=== PATIENT | female | born 1965 | race Caucasian/White ===

== ENCOUNTER → 2020-05-12 12:13 | Outpatient (CLI) | payer OTHER, SELFPAY ==
--- NOTE | ~2020-05-12 | MM_ITS ---
EXAMINATION: MM screening marcia BI w safai HISTORY: Screening mammogram, family history of breast cancer in her mother. TECHNIQUE: Craniocaudal and mediolateral oblique 3-D tomosynthesis images were obtained and synthetic 2-D images were generated. CAD analysis was submitted and interpreted. COMPARISON: 11/20/2018, 11/09/2018, 11/07/2017 BREAST PARENCHYMAL COMPOSITION: There are scattered areas of fibroglandular density. FINDINGS: There is no evidence of suspicious mass, calcification, or architectural distortion to sugg est malignancy in either breast. There has been no suspicious interval change. IMPRESSION: 1. No mammographic evidence of malignancy. 2. Recommend routine screening mammography in one year. BI-RADS Category 1: Negative Reviewed, dictated and finalized at location A.
== END ==
PROVIDERS: Visit Provider Obstetrics & Gynecology Gynecology
DX: Z12.31 Encounter for screening mammogram for malignant neoplasm of breast (principal)
CPT/HCPCS: 77063; 77067

== ENCOUNTER → 2021-05-27 13:19 | Outpatient (CLI) | payer OTHER, SELFPAY ==
--- NOTE | ~2021-05-27 | MM_ITS ---
EXAMINATION: MM screening marcia BI w safia HISTORY: Screening mammogram TECHNIQUE: Craniocaudal and mediolateral oblique 3-D tomosynthesis images were obtained and synthetic 2-D images were generated. CAD analysis was submitted and interpreted. COMPARISON: 05/12/2020 bilateral screening mammogram 11/20/2018 diagnostic right mammogram 11/09/2018, 11/03/2017 bilateral screening mammogram examinations BREAST PARENCHYMAL COMPOSITION: There are scattered areas of fibroglandular density. FINDINGS: There is no evidence of suspicious mass, calcification, or architectural distortion to sugg est malignancy in either breast. There has been no suspicious interval change. IMPRESSION: 1. No mammographic evidence of malignancy. 2. Recommend routine screening mammography in one year. BI-RADS Category 1: Negative Reviewed, dictated and finalized at location A.
== END ==
PROVIDERS: Visit Provider Obstetrics & Gynecology Gynecology
DX: Z12.31 Encounter for screening mammogram for malignant neoplasm of breast (principal)
CPT/HCPCS: 77063; 77067

== ENCOUNTER → 2022-04-16 14:24 | Outpatient (CLI) | payer OTHER, SELFPAY ==
--- NOTE | ~2022-04-16 | XR_ITS ---
Right wrist Technique: PA, oblique, lateral, and ulnar deviation views were obtained. Clinical History: Lateral pain Findings: No acute fracture or dislocation is seen. Osseous alignment is anatomic. Joint spaces are p reserved. Soft tissues are unremarkable. Impression: Unremarkable right wrist radiographs. Reviewed, dictated and finalized at location . [employer] CON[employer]GE Impression: Unremarkable right wrist radiographs.
== END ==
PROVIDERS: PCP Chiropractor; Visit Provider Chiropractor
DX: M25.531 Pain in right wrist (principal)
CPT/HCPCS: 73110

== ENCOUNTER → 2022-06-05 08:17 | Outpatient (CLI) | payer OTHER, SELFPAY ==
--- NOTE | ~2022-06-05 | XR_ITS ---
EXAM: XR forearm RT 2V DATE: 06/05/2022 09:49 HISTORY: Pain in right forearm . COMPARISON: X-ray right wrist 04/16/2022. FINDINGS: Normal mineralization. No fracture or dislocation. No lytic or blastic lesion. Joint space s and physes are maintained. No erosion or periosteal change. Soft tissues within normal limits. IMPRESSION: Normal right forearm radiograph findings. Reviewed, dictated and finalized at location K.
== END ==
PROVIDERS: PCP Chiropractor; Visit Provider Chiropractor
DX: M79.631 Pain in right forearm (principal)
CPT/HCPCS: 73090

== ENCOUNTER → 2022-06-19 07:45 | Outpatient (CLI) | payer OTHER, SELFPAY ==
--- NOTE | ~2022-06-19 | MR_ITS ---
EXAMINATION: MR forearm RT wo con DATE: 06/19/2022 08:44 INDICATION: Right forearm pain. TECHNIQUE: Magnetic resonance imaging (MRI) of the right forearm was performed without intravenous co ntrast. COMPARISON: Right forearm radiographs 06/05/2022 FINDINGS: Bone alignment is normal. No fracture. There is moderate osteoarthritis of first carpometac arpal joint and mild osteoarthritis of triscaphe joint and the elbow joint. No elbow joint effusion. The forearm musculature is normal. There is a skin marker at the dorsal aspect of the forearm. There is no abnormality in the area of the skin marker. IMPRESSION: 1. No abnormality in the patient's area of concern. 2. Polyarticular osteoarthritis. Reviewed, dictated and finalized at location A.
== END ==
PROVIDERS: PCP Chiropractor; Visit Provider Chiropractor
DX: M19.031 Primary osteoarthritis, right wrist (principal)
CPT/HCPCS: 73218

== ENCOUNTER → 2022-08-04 16:49 | Outpatient (CLI) | payer OTHER, SELFPAY ==
--- NOTE | ~2022-08-04 | MM_ITS ---
EXAMINATION: MM screening marcia BI w safia HISTORY: Screening mammogram TECHNIQUE: Craniocaudal and mediolateral oblique 3-D tomosynthesis images were obtained and synthetic 2-D images were generated. CAD analysis was submitted and interpreted. COMPARISON: 05/27/2021, 05/12/2020 bilateral screening mammogram examinations BREAST PARENCHYMAL COMPOSITION: There are scattered areas of fibroglandular density. FINDINGS: There is no evidence of suspicious mass, calcification, or architectural distortion to sugg est malignancy in either breast. There has been no suspicious interval change. IMPRESSION: 1. No mammographic evidence of malignancy. 2. Recommend routine screening mammography in one year. BI-RADS Category 1: Negative Reviewed, dictated and finalized at location A.
== END ==
PROVIDERS: PCP Family Medicine; Visit Provider Obstetrics & Gynecology Gynecology
DX: Z12.31 Encounter for screening mammogram for malignant neoplasm of breast (principal)
CPT/HCPCS: 77063; 77067

== ENCOUNTER → 2022-08-30 12:02 | Outpatient (CLI) | payer OTHER, SELFPAY ==
--- NOTE | ~2022-08-30 | DEXA_ITS ---
Bone Density Report Name: MEGAN CHENEY Age: 56 Sex: Female Ethnicity: White Date of : 1965 Indication: postmenopausal; screening for osteoporosis; Referring Provider: SHANKAR CHAVIRA Study: Bone densitometry was performed. Exam Date: August 30, 2022 Accession number: [id number] Bone Density: Region BMD T-score Z-score Classification AP Spine (L1-L4) 1.032 -0.1 0.9 Normal Femoral Neck (Left) 0.690 -1.4 -0.4 Osteopenia Total Hip (Left) 0.806 -1.1 -0.4 Osteopenia Femoral Neck (Right) 0.645 -1.8 -0.8 Osteopenia Total Hip (Right) 0.766 -1.4 -0.8 Osteopenia Total Hip Mean 0.786 -1.3 -0.6 Osteopenia World Health Organization criteria for BMD impression classify patients as: Normal (T-score at or above -1.0), Osteopenia (T-score between -1.0 and -2.5), or Osteoporosis (T-score at or below -2.5). 10-year Fracture Risk(1): Major Osteoporotic Fracture 7.4% Hip Fracture 0.8% Reported Risk Factors: [place] (), Neck BMD=0.645, BMI=24.9 (1) FRAX(R) Version 3.08. Fracture probability calculated for an untreated patient. Fracture probability may be lower if the patient has received treatment. Clinical Information Provided by Patient: Has used the following medications: Vitamin D Patient maximum height was 62 Menopause Age: 54 Drinks caffeinated beverages Onset of menses at age 15 Number of children 3 Impression: The patient has low bone mass, based on the Right Femoral Neck T-score. The patient has an estimated ten-year risk of hip fracture of 0.8% and an estimated ten-year risk of major fracture of 7.4%, based on the WHO FRAX algorithm. Discussion: BONE DENSITY IS LOW AT ONE OR MORE SKELETAL SITES. This patient's lowest T-score is low at one or more skeletal sites. It meets the World Health Organization's (WHO) criteria for ?low bone mass? (T-score between -1.0 and -2.5). The patient's 10-year risk of fracture as calculated by FRAX is less than the threshold where pharmacological therapy is recommended by the National Osteoporosis Foundation (NOF). However, all treatment decisions require clinical judgment and consideration of individual patient factors, including patient preferences, comorbidities, previous drug use, risk factors not captured in the FRAX model (e.g., frailty, falls, vitamin D deficiency, increased bone turnover, interval significant decline in bone density) and possible under or overestimation of fracture risk by FRAX. The patient should follow a healthful lifestyle (good nutrition with adequate calcium and vitamin D, and appropriate weight-bearing exercise). Follow-Up: Consider repeating this study in 2 to 3 years to reassess this patient's status, or sooner if there is some new clinical indication. Reported by: KIRAN on 08/30/2022 12:18:00 PM.
== END ==
PROVIDERS: PCP Obstetrics & Gynecology Gynecology; Visit Provider Obstetrics & Gynecology Gynecology
DX: Z13.820 Encounter for screening for osteoporosis (principal); Z78.0 Asymptomatic menopausal state; M85.852 Other specified disorders of bone density and structure, left thigh; M85.851 Other specified disorders of bone density and structure, right thigh
CPT/HCPCS: 77080

== ENCOUNTER → 2022-09-14 16:45 | Outpatient (CLI) | payer OTHER, SELFPAY ==
--- NOTE | ~2022-09-14 | XR_ITS ---
Cervical Spine: AP, lateral, oblique, open-mouth views Clinical History: Pain Findings: The normal lordotic curve is maintained. No fracture seen. Minimal grade 1 anterolisthesis of C4 over C5 noted. There is moderate degenerative disc narrowing at C3-C4 and C5-C6. Pre-vertebral soft tissues are unremarkable. Impression: Minimal grade 1 anterolisthesis of C4 over C5. Degenerative disc narrowing at C3-C4 and C5-C6, as detailed above. Reviewed, dictated and finalized at location . Impression: Minimal grade 1 anterolisthesis of C4 over C5. Degenerative disc narrowing at C3-C4 and C5-C6, as detailed above.
== END ==
PROVIDERS: PCP Chiropractor; Visit Provider Chiropractor
DX: M54.2 Cervicalgia (principal)
CPT/HCPCS: 72050

== ENCOUNTER → 2022-10-30 09:51 | Outpatient (CLI) | payer OTHER, SELFPAY ==
--- NOTE | ~2022-10-30 | MR_ITS ---
MRI of the cervical spine Clinical History: Right-sided neck pain Technique: Axial T2-weighted and gradient images, and sagittal T1-weighted, T2-weighted, and STIR mariano ges were acquired. Findings: There is minimal grade 1 anterolisthesis of C4 over C5. No fracture seen. No suspicious bon e marrow signal abnormality seen. At C2-C3, there is no disc bulge or herniation. No spinal canal stenosis, cord compression, or neural foraminal narrowing. At C3-C4, there is moderate degenerative disc narrowing. There is minimal disc bulge. No spinal canal stenosis, cord compression. There is mild bilateral neural foraminal narrowing. At C4-C5, there is mild disc osteophyte complex, especially the right paracentral to right foraminal region, with right facet arthropathy. There is right neural foraminal narrowing. Left neural foramen preserved. No central canal stenosis or cord compression. At C5-C6, there is moderate to advanced degenerative disc narrowing with minimal disc osteophyte comp yaquelin. No dipti spinal canal stenosis or cord compression. There is bilateral neural foraminal narrowin g. At C6-C7, there is moderate degenerative disc narrowing with minimal disc osteophyte complex. No cent ral canal stenosis or cord compression. Probable mild left neural foraminal narrowing. Right neural f oramen is preserved. No abnormal signal seen in the spinal cord. Paravertebral soft tissues are unremarkable. Impression: Mild overall degenerative spondylosis, with multilevel neural foraminal narrowing, as detailed above. Neural foraminal narrowing is probably worst at C3-C4. Reviewed, dictated and finalized at [facility]. Impression: Mild overall degenerative spondylosis, with multilevel neural foraminal narrowi ng, as detailed above. Neural foraminal narrowing is probably worst at C3-C4.
== END ==
PROVIDERS: PCP Chiropractor; Visit Provider Chiropractor
DX: M43.02 Spondylolysis, cervical region (principal); M48.02 Spinal stenosis, cervical region
CPT/HCPCS: 72141

== ENCOUNTER 2023-03-18 12:14 | Outpatient (CLI) | payer OTHER, SELFPAY ==
--- NOTE | ~2023-03-18 | XR_ITS ---
Right Shoulder Technique: AP and scapular Y views were obtained. Clinical History: Pain Findings: No fracture or dislocation is seen. Osseous alignment is anatomic. The glenohumeral and acr omioclavicular joint spaces are preserved. Soft tissues are unremarkable. Impression: Unremarkable right shoulder radiographs. Reviewed, dictated and finalized at [facility]. [employer] Impression: Unremarkable right shoulder radiographs.
== END 2023-03-18 12:15 ==
PROVIDERS: PCP Chiropractor; Visit Provider Chiropractor
DX: M25.511 Pain in right shoulder (principal)
CPT/HCPCS: 73030

== ENCOUNTER 2024-02-02 13:54 | Outpatient (CLI) | payer OTHER, SELFPAY ==
--- NOTE | ~2024-02-02 | MM_ITS ---
EXAMINATION: MM screening marcia BI w safia HISTORY: Screening TECHNIQUE: Craniocaudal and mediolateral oblique 3-D tomosynthesis images were obtained and synthetic 2-D images were generated. CAD analysis was submitted and interpreted. COMPARISON: Comparison to multiple prior studies sequentially, with oldest reviewed study dated 11/07. BREAST PARENCHYMAL COMPOSITION: Not dense: There are scattered areas of fibroglandular density. FINDINGS: There is no evidence of suspicious mass, calcification, or architectural distortion to sugg est malignancy in either breast. There has been no suspicious interval change. IMPRESSION: 1. No mammographic evidence of malignancy. 2. Recommend routine screening mammography in one year. BI-RADS Category 1: Negative Reviewed, dictated and finalized at location B. [employer]
== END 2024-02-02 13:55 | disposition home or self-care (01) ==
LOC: MICIMG 13:55
PROVIDERS: PCP Family Medicine; Visit Provider Obstetrics & Gynecology Gynecology
DX: Z12.31 Encounter for screening mammogram for malignant neoplasm of breast (principal)
CPT/HCPCS: 77063; 77067

== ENCOUNTER 2024-08-29 09:19 | Outpatient (CLI) | payer OTHER, SELFPAY ==
--- NOTE | ~2024-08-29 | MMUS_ITS ---
EXAMINATION: MM diagnostic marcia BI w safia, US breast RT limited HISTORY: Right lateral breast pain TECHNIQUE: Additional 3-D tomosynthesis images of the breasts were performed and synthetic 2-D images were generated. CAD analysis was submitted and interpreted. High resolution Limited right breast ult rasound was performed. COMPARISON: Comparison to multiple prior studies sequentially, with oldest reviewed study dated 11/09. BREAST PARENCHYMAL COMPOSITION: Not dense: There are scattered areas of fibroglandular density. FINDINGS: MAMMOGRAPHIC FINDINGS: There are no suspicious masses, calcifications or architectural distortion in either breast to sugges t malignancy. ULTRASOUND: Limited right breast/axillary ultrasound: Normal heterogeneous echotexture without focal solid or cys tic mass. IMPRESSION: 1. No evidence for malignancy in either breast. 2. Routine yearly screening mammogram and regular clinical breast examination are recommended. BI-RADS Category 1: Negative Reviewed, dictated and finalized at location B. IMPRESSION: 1. No evidence for malignancy in either breast. 2. Routine yearly screening mammogram and regular clinical breast examination a re recommended. BI-RADS Category 1: Negative
== END 2024-08-29 09:20 | disposition home or self-care (01) ==
LOC: MICIMG 09:21
PROVIDERS: PCP Nurse Practitioner; Visit Provider Nurse Practitioner
DX: N64.59 Other signs and symptoms in breast (principal)
CPT/HCPCS: 76642; 77062; 77066; G0279

== ENCOUNTER 2024-11-20 14:12 | Outpatient (CLI) | payer OTHER, SELFPAY ==
--- NOTE | ~2024-11-20 | DEXA_ITS ---
Bone Density Report Name: MEGAN CHENEY Age: 59 Sex: Female Ethnicity: White Date of : 1965 Indication: osteopenia; Referring Provider: SHANKAR CHAVIRA Study: Bone densitometry was performed. Exam Date: November 20, 2024 Accession number: [id number] Bone Density: Region BMD T-score Z-score Classification AP Spine(L1-L4) 0.958 -0.8 0.4 Normal Femoral Neck (Left) 0.651 -1.8 -0.6 Osteopenia Total Hip (Left) 0.760 -1.5 -0.7 Osteopenia Femoral Neck (Right) 0.657 -1.7 -0.6 Osteopenia Total Hip (Right) 0.695 -2.0 -1.2 Osteopenia Total Hip Mean 0.728 -1.8 -1.0 Osteopenia World Health Organization criteria for BMD impression classify patients as: Normal (T-score at or above -1.0), Osteopenia (T-score between -1.0 and -2.5), or Osteoporosis (T-score at or below -2.5). 10-year Fracture Risk(1): Major Osteoporotic Fracture 7.9% Hip Fracture 0.8% Reported Risk Factors: [place] (), Neck BMD=0.651, BMI=25.5 (1) FRAX(R) Version 3.08. Fracture probability calculated for an untreated patient. Fracture probability may be lower if the patient has received treatment. Previous Exams: -- Region Exam Age BMD T-score BMD Change BMD Change Date g/cm2 vs Baseline vs Previous -- AP Spine (L1-L4) 11/20/2024 59 0.958 -0.8 -7.1%* -7.1%* 08/30/2022 56 1.032 -0.1 Total Hip(Left) 11/20/2024 59 0.760 -1.5 -5.7%* -5.7%* 08/30/2022 56 0.806 -1.1 Total Hip(Right) 11/20/2024 59 0.695 -2.0 -9.2%* -9.2%* 08/30/2022 56 0.766 -1.4 -- *Denotes significance at 95% confidence level, LSC for AP Spine = 0.022 g/cm2, LSC for Total Hip = 0.027 g/cm2 Clinical Information Provided by Patient: Has used the following medications: Vitamin D Patient maximum height was 62 Menopause Age: 54 Drinks caffeinated beverages Onset of menses at age 15 Number of children 3 Impression: The patient has low bone mass, based on the Right Total Hip T-score. The patient has an estimated ten-year risk of hip fracture of 0.8% and an estimated ten-year risk of major fracture of 7.9%, based on the WHO FRAX algorithm. The BMD for the AP Spine (L1-L4) decreased, changing by -7.1% since the last DXA exam. The BMD for the Total Hip(Left) decreased, changing by -5.7% since the last DXA exam. The BMD for the Total Hip(Right) decreased, changing by -9.2% since the last DXA exam. Discussion: BONE DENSITY IS LOW AT ONE OR MORE SKELETAL SITES. This patient's lowest T-score is low at one or more skeletal sites. It meets the World Health Organization's (WHO) criteria for ?low bone mass? (T-score between -1.0 and -2.5). The patient's 10-year risk of fracture as calculated by FRAX is less than the threshold where pharmacological therapy is recommended by the National Osteoporosis Foundation (NOF). However, all treatment decisions require clinical judgment and consideration of individual patient factors, including patient preferences, comorbidities, previous drug use, risk factors not captured in the FRAX model (e.g., frailty, falls, vitamin D deficiency, increased bone turnover, interval significant decline in bone density) and possible under or overestimation of fracture risk by FRAX. The patient should follow a healthful lifestyle (good nutrition with adequate calcium and vitamin D, and appropriate weight-bearing exercise). Follow-Up: Consider repeating this study in 2 years to reassess this patient's status, or sooner if there is some new clinical indication. Reported by: SIRENA on 11/20/2024 2:32:00 PM. Reviewed, dictated and finalized at location A.
== END 2024-11-20 14:13 | disposition home or self-care (01) ==
LOC: MICIMG 14:13
PROVIDERS: PCP Obstetrics & Gynecology Gynecology; Visit Provider Obstetrics & Gynecology Gynecology
DX: M85.88 Other specified disorders of bone density and structure, other site (principal); M85.852 Other specified disorders of bone density and structure, left thigh; M85.851 Other specified disorders of bone density and structure, right thigh
CPT/HCPCS: 77080